=== PATIENT | male | born 2000 | race African-American/Black ===

== ENCOUNTER 2025-06-23 22:26 | Emergency (ER) | payer OTHER, SELFPAY ==
[2025-06-24 00:29] LABS: #Basophils 0.05 10x3/uL (0.0-0.2); #Eosinophils 0.09 10x3/uL (0.0-0.7); #Monocytes 1.01 10x3/uL (0.11-0.59); #Neutrophils 7.63 10x3/uL (1.40-6.50); %Basophils 0.5 % (0.0-1.0); %Eosinophils 0.9 % (0.0-10.0); %Lymphocytes 12.3 % (21.0-51.0); %Monocytes 10.1 % (0.0-10.0); %Neutrophils 76.0 % (42.0-75.0); Hematocrit 41.2 % (42.0-52.0); Hemoglobin 13.7 g/dL (14.0-18.0); Mean Corpuscular Hemoglobin 28.1 pg (27.0-31.0); Mean Corpuscular Volume 84.6 fL (78.0-98.0); Platelet Count 214 10x3/uL (130-400); Red Blood Cell (RBC) Count 4.87 mill/uL (4.70-6.10); White Blood Cell (WBC) Count 10.03 10x3/uL (4.8-10.8)
[2025-06-24 00:42] LABS: Lipase 26 U/L (8-78)
[2025-06-24 00:44] LABS: ALT (SGPT) 100 U/L (Less than 45); AST (SGOT) 103 U/L (11-34); Acetaminophen Less than 10 mcg/mL (Less than 10); Albumin 3.9 g/dL (3.1-4.5); Alkaline Phosphatase 68 U/L (40-110); Anion Gap 12 mmol/L (10-20); BUN (Urea Nitrogen) 15 mg/dL (8.9-20.6); Bilirubin, Total 0.3 mg/dL (0.3-1.2); CK (CPK) 147 U/L (30-200); Calc. Creatinine Clearance 0 mL/min (70-130); Calcium 8.2 mg/dL (7.8-10.44); Carbon Dioxide 25 mmol/L (22-29); Chloride 107 mmol/L (98-107); Globulin 2.6 g/dL (2.4-3.5); Glucose 97 mg/dL (70-105); Potassium 4.7 mmol/L (3.5-5.1); Salicylate Less than 8.0 mg/dL (Less than 8.0); Sodium 139 mmol/L (136-145)
[2025-06-24 01:51] LABS: Cocaine Metabolite Screen Negative (Negative); THC/Cannabinoid Screen Negative (Negative); Tricyclic Screen Negative (Negative)
== END 2025-06-24 02:41 ==
LOC: EEVIPCON 22:26 → ERS 22:26
DX: F12.929 Cannabis use, unspecified with intoxication, unspecified (principal)
CPT/HCPCS: 80053; 80306; 80307; 82550; 83605; 83690; 85025; 93005; 99284